=== PATIENT | male | born 1940 | race Caucasian/White ===

== ENCOUNTER 2017-11-16 07:07 | Day surgery (SDC) | payer BC, MEDICARE ==
[2017-11-15 10:50] LABS: HEMATOCRIT 34.7 % (42.0-54.0); HEMOGLOBIN 11.7 g/dL (13.5-17.5); MCH 31.5 pg (26.0-34.0); MCHC 33.7 g/dL (31.0-37.0); MCV 93.5 fL (80.0-100.0); MEAN PLATELET VOLUME 10.2 fL (7.4-10.4); RBC 3.71 10x6/uL (4.20-6.10); RDW 13.1 % (11.5-14.5); WBC 4.6 10x3/uL (4.8-10.8)
[~2017-11-16] VITALS: Ht 182.9 cm; Wt 76.7 kg
--- NOTE | ~2017-11-16 | OP ---
PATIENT NAME: DEEPTHI PACHECO MEDICAL RECORD: [id number] :38 LOCATION:[facility] ADMISSION DATE: SURGEON: ROSALINDA GASPAR MD DATE OF OPERATION: 11/16/2017 PREOPERATIVE DIAGNOSIS: Nonhealing ulcer in the prepyloric area. POSTOPERATIVE DIAGNOSES: Nonhealing ulcer in the prepyloric area with linear polyp at 1.8 cm within the antrum, best seen with narrow band imaging. PROCEDURE: 1. Esophagogastroduodenoscopy with cold endoscopic biopsies of the nonhealing ulcer. 2. Treatment of the nonhealing ulcer with the argon plasma classroom teacher utilizing the right colon setting in the forced mode. 3. Piecemeal polypectomy and then treatment of the polypoid base with the argon plasma classroom teacher and placement of an endoscopic clip for hemostasis. SURGEON: Rosalinda Gaspar MD ELECTRONIC SALES AND SERVICE TECHNICIAN: None. BLOOD LOSS: Minimal. ENDOSCOPIC COURSE: The patient was conveyed to the operating room electively on 11/16/2017. General anesthesia was induced by the anesthesia staff. A bite block was inserted. A gastroscope was inserted into the mouth. It was advanced easily into the hypopharynx. The esophagus was easily intubated as were the stomach and duodenum. Upon withdrawal, retroflexed and angulus views were obtained. Biopsies were obtained in the ulcer, which was located at 12 o'clock. These were cold endoscopic biopsies. I then treated the nonhealing ulcer with the argon plasma classroom teacher utilizing the right colon setting in the forced mode. There was a polyp located at 7-8 o'clock. This was best seen with narrow band imaging. Multiple cold endoscopic biopsies were performed. I then ablated the polypoid base utilizing the argon plasma classroom teacher with the right colon setting in the forced mode. There was still some bleeding at the mid portion of the polyp and for this reason, I applied a single endoscopic clip, which ensured hemostasis. The endoscope was then withdrawn under direct vision. I will see the patient in my office in 2-3 weeks to review the results of the biopsies. I will then plan to return the patient's endoscopic care back over to Dr. Branch. TRANSINT:[id number] Voice Confirmation ID: [id number] DOCUMENT ID: [id number] OPERATIVE REPORT [id number] PACHECODEEPTHI ANTON ROBERT MD at 1118 CC: DEBO BRANCH MD, EMMANUEL OLIVEROS MD, ROSALINDA SANTANA and [id number] DICTATION DATE: 11/16/17 1103 COMMERCIAL LOAN CLOSER: 11/16/17 1115 REG [place] [id number] [place] [id number]
[2017-11-16 05:50] LABS: CALC OSMOLALITY 287 mosm/kg (275-300); CALCIUM 8.3 mg/dL (8.5-10.1); CARBON DIOXIDE 31.4 mmol/L (21.0-32.0); CHLORIDE - SERUM 105 mmol/L (98-107); GLUCOSE 98 mg/dL (74-106); POTASSIUM - SERUM 4.2 mmol/L (3.5-5.1); SODIUM 142 mmol/L (136-145); UREA NITROGEN 26 mg/dL (7-18); eGFR NON AFRICAN AMERICAN 77 mL/min (90-120)
[~2017-11-16 07:07] MED LIST: BAYER CHEWABLE81 MG PO; CO Q-10100 MG PO; GABAPENTIN100 MG PO; GLUCOPHAGE500 MG PO; GLUCOSAMINE & C1 CAP PO; LIPITOR20 MG PO; LISINOPRIL2.5 MG PO; OS-CAL500 MG PO; PREDNISONE20 MG PO; VITAMIN D31000 UNI2 PO; ZOLOFT50 MG PO
[2017-11-16] MEDS ORDERED: ASPIRIN325 MG PO (08:12)
[2017-11-16] MEDS ORDERED: ZESTRIL40 MG PO (08:19)
[2017-11-16 08:27] VITALS: BP 137/65; BMI 22.9
[2017-11-16 09:39] VITALS: Ht 182.9 cm; Wt 76.7 kg
== END 2017-11-16 13:15 | disposition home or self-care (01) ==
LOC: D.OPS 07:07 → D.PAN 08:45 → D.OPS 09:45 → D.PAN 09:45 → D.OPS 13:15
PROVIDERS: Anesthesiology
DX: K25.9 Gastric ulcer, unspecified as acute or chronic, without hemorrhage or perforation (principal); K31.7 Polyp of stomach and duodenum; Z01.812 Encounter for preprocedural laboratory examination